=== PATIENT | female | born 1940 | race Two or more races ===

== ENCOUNTER 2020-03-06 11:52 | Outpatient (CLI) | payer MEDICARE, OTHER ==
[2020-03-06] MEDS ORDERED: METO25TA91 PO (12:25)
[2020-03-06] MEDS ORDERED: LISI-167 PO (12:25)
[2020-03-06] MEDS ORDERED: CHOL10003 PO (12:25)
[2020-03-06 13:35] LABS: MICROSCOPIC INDICATED
[2020-03-06 13:41] LABS: BASOPHILS # (AUTO) 0.04 x10^3/uL (0-0.1); BASOPHILS % (AUTO) 0 % (0-1); EOSINOPHILS # (AUTO) 0.21 x10^3/uL (0-0.4); EOSINOPHILS % (AUTO) 2 % (1-7); LYMPHOCYTES # (AUTO) 1.41 x10^3/uL (1-3.4); LYMPHOCYTES % (AUTO) 15 % (22-44); MD NO; MEAN CORPUSCULAR HEMOGLOBIN 29.1 pg (27.0-34.8); MEAN CORPUSCULAR HGB CONC 32.7 g/dL (32.4-35.8); MONOCYTES # (AUTO) 0.66 x10^3/uL (0.2-0.8); MONOCYTES % (AUTO) 7 % (2-9); NEUTROPHILS # (AUTO) 7.23 x10^3/uL (1.8-6.8); NEUTROPHILS % (AUTO) 76 % (42-75); PLATELET COUNT 352 x10^3/uL (130-400); RED BLOOD COUNT 4.38 x10^6/uL (3.82-5.3); RED CELL DISTRIBUTION WIDTH 13.6 % (9.6-15.2)
[2020-03-06 13:43] LABS: ALBUMIN 3.8 g/dL (3.4-5.0); ANION GAP 7 mmol/L (5-15); CALCIUM 9.2 mg/dL (8.5-10.1); CHLORIDE 116 mmol/L (98-107)
[2020-03-06 13:46] LABS: PROTHROMBIN TIME 10.6 Seconds (9.6-11.5)
[2020-03-06 13:47] LABS: ALANINE AMINOTRANSFERASE 16 U/L (12-78); ALKALINE PHOSPHATASE 144 U/L (45-117); BILIRUBIN,TOTAL 0.6 mg/dL (0.2-1.0); CREATININE 0.98 mg/dL (0.55-1.02); TOTAL PROTEIN 7.7 g/dL (6.4-8.2)
[2020-03-16] MEDS ORDERED: ONDA4TAB7 PO (08:47)
[2020-03-16] MEDS ORDERED: TIZA2TAB4 PO (08:47)
[2020-03-16] MEDS ORDERED: HYDR-3240 PO (08:47)
== END 2020-03-06 23:59 | disposition home or self-care (01) ==
LOC: STAR 11:52
PROVIDERS: ATTEND Neurological Surgery
DX: Z01.818 Encounter for other preprocedural examination (principal); Z11.59 Encounter for screening for other viral diseases; M50.30 Other cervical disc degeneration, unspecified cervical region
CPT/HCPCS: 36415; 71046; 80053; 81001; 85025; 85610; 85730; 87086; 93005; U0001